=== PATIENT | male | born 1955 | race Caucasian/White ===

== ENCOUNTER 2025-02-16 23:13 | Inpatient (IN) | payer BC ==
[~2025-02-16] VITALS: Ht 167.6 cm; Wt 89.8 kg
[2025-02-16 23:30] VITALS: O2SAT 99
[2025-02-17] LABS: BASOPHILS % 2.6 % (0.0-2.0); EOSINOPHILS % 2.6 % (0.0-5.0); HEMATOCRIT. 42.0 % (42.0-52.0); HEMOGLOBIN. 14.4 g/dL (14.0-18.0); LYMPHOCYTES % 43.6 % (20.0-50.0); MEAN PLATELET VOLUME 8.1 fl (7.4-10.4); MONOCYTES % 11.5 % (2.0-8.0); NEUTROPHILS % 39.7 % (40.0-76.0); PLATELET 240 x1000/uL (130-400); RED BLOOD CELL COUNT 4.69 mill/uL (4.7-6.1); RED CELL DISTRIBUTION WIDTH 12.6 % (11.6-14.6)
[2025-02-17 00:02] LABS: CLARITY URINE CLEAR (CLEAR); COLOR URINE YELLOW (YELLOW); GLUCOSE URINE NEGATIVE (NEGATIVE); KETONES URINE NEGATIVE (NEGATIVE); LEUKOCYTE ESTERASE URINE NEGATIVE (NEGATIVE); NITRITE URINE NEGATIVE (NEGATIVE); OCCULT BLOOD URINE NEGATIVE (NEGATIVE); PH URINE 6.0 (4.5-8.0); PROTEIN URINE NEGATIVE (NEGATIVE); SPECIFIC GRAVITY URINE 1.018 (1.005-1.030); UROBILINOGEN URINE 0.2 E.U./dL (0.2-1.0)
[2025-02-17 00:12] LABS: CREATININE 0.8 mg/dL (0.6-1.3); UREA NITROGEN BLOOD 11 mg/dL (9-23)
[2025-02-17 00:19] LABS: TROPONIN I HIGH SENSITIVITY 7 ng/L (3.0-53)
[2025-02-17 02:00] VITALS: BP 174/84; PULSE 65; RESP 18; TEMP 37.0852
[2025-02-17] MEDS: CLONIDINE 0.1MG TABLET PO PRN (02:17)
[2025-02-17 04:00] VITALS: BP 117/64; PULSE 53; RESP 19; TEMP 36.6; O2SAT 98
[2025-02-17 08:00] VITALS: BP 145/86; PULSE 65; RESP 18; TEMP 36.5; O2SAT 99
[2025-02-17] MEDS ORDERED: IPRATROPIUM/ALBUTEROL 0.5-3(2.5)MG/3ML NEB NEB PRN (08:45)
[2025-02-17] MEDS ORDERED: ONDANSETRON HCL 4MG/2ML INJ IV PRN (08:45)
[2025-02-17] MEDS ORDERED: MAGNESIUM/ALUMINUM HYDROXIDE/SIMETHICONE 30ML UDC PO PRN (08:45)
[2025-02-17] MEDS ORDERED: DIPHENHYDRAMINE 50MG/ML VIAL IV PRN (08:45)
[2025-02-17] MEDS ORDERED: DOCUSATE SODIUM 100MG CAPSULE PO PRN (08:45)
[2025-02-17] MEDS ORDERED: GUAIFENESIN 200MG/10ML SUGAR FREE UDC PO PRN (08:45)
[2025-02-17] MEDS ORDERED: NA PHOS,M-B/NA PHOS,DI-BA ENEMA 118ML PR PRN (08:45)
[2025-02-17] MEDS ORDERED: ACETAMINOPHEN 325MG TABLET PO PRN (08:45)
[2025-02-17 11:12] LABS: TROPONIN I HIGH SENSITIVITY 7 ng/L (3.0-53)
[2025-02-17] MEDS: ASPIRIN 81MG EC TABLET PO SCH (11:31)
[2025-02-17] MEDS: SODIUM CHLORIDE 0.45% 1,000 ML IV SCH (11:41)
[2025-02-17 12:00] VITALS: BP 135/77; PULSE 60; RESP 18; TEMP 36.3; O2SAT 99
[2025-02-17 16:00] VITALS: BP 140/78; PULSE 60; RESP 18; TEMP 36.2; O2SAT 99
[2025-02-17 18:33] LABS: TROPONIN I HIGH SENSITIVITY 7 ng/L (3.0-53)
[2025-02-17 20:00] VITALS: BP 138/72; PULSE 53; RESP 18; TEMP 37.1; O2SAT 98
[2025-02-17 23:45] LABS: TROPONIN I HIGH SENSITIVITY 7 ng/L (3.0-53)
[2025-02-18 04:00] VITALS: BP_SYST 162; BP_DIAS 78; BP_DIAS 89; PULSE 58; RESP 18; TEMP 36.7; O2SAT 97
[2025-02-18] MEDS: CLONIDINE 0.1MG TABLET PO PRN (05:52)
[2025-02-18 06:59] LABS: TRIGLYCERIDE 135.0 mg/dL (0-150)
[2025-02-18 07:00] LABS: LDL CHOLESTEROL 172.0 mg/dL (5-100)
[2025-02-18 08:00] VITALS: BP 134/80; PULSE 71; RESP 16; TEMP 36.4; O2SAT 100
[2025-02-18 09:44] VITALS: BP 134/80; PULSE 71; RESP 16; TEMP 97.6
== END 2025-02-18 11:20 | disposition home or self-care (01) | DRG 74 ==
LOC: ER 23:13 → 7WST 02-17 00:31 → EDBEDREQ 02-17 00:34 → EDBEDREQSVC 02-17 00:34 → EDBEDREQTM 02-17 00:34 → EDBEDREQDT 02-17 00:34 → ENRESERV 02-17 00:57
PROVIDERS: ADMIT Internal Medicine; ATTEND Internal Medicine
DX: G90.89 Other disorders of autonomic nervous system (principal); E86.0 Dehydration; I10 Essential (primary) hypertension; I44.7 Left bundle-branch block, unspecified
CPT/HCPCS: 36415; 71045; 80048; 80061; 81003; 83735; 84484; 85025; 93005; 99285; A4606